=== PATIENT | female | born 1945 | race American Indian/Alaskan Native ===

== ENCOUNTER 2021-11-23 09:55 | Outpatient (CLI) | payer MEDICARE ==
--- NOTE | 2021-11-23 16:33 | Nuclear Medicine Report ---
NUCLEAR MEDICINE PARATHYROID SCAN INDICATION / CLINICAL INFORMATION: N18.30. TECHNIQUE: Following the intravenous administration of 20 mCi [id number], early and delayed ant erior and oblique images of the neck and upper thorax were acquired. COMPARISON: No relevant prior imaging study available. FINDINGS: EARLY IMAGING: Diffuse symmetric physiologic thyroid activity. DELAYED IMAGING: Near complete symmetric washout from the normal thyroid tissue. There is subtle upta ke at the level of the lower pole of the thyroid on the delayed images with washout of the remainder of the uptake in the thyroid this is suspicious for parathyroid adenoma but is not definitive. Additional Findings: None. IMPRESSION: 1. There is a suspicious focus of activity at the level of the lower pole of the right lobe of the th yroid on the delayed images with washout of the remainder of the thyroid gland. This is suspicious fo r parathyroid adenoma. Signer Name: Jonah Smart MD Signed: 11/23/2021 4:29 PM Workstation Name: [id number]
== END 2021-11-23 09:56 | disposition home or self-care (01) ==
LOC: NM 09:55
PROVIDERS: ATTEND Student in an Organized Health Care Education/Training Program
DX: I12.9 Hypertensive chronic kidney disease with stage 1 through stage 4 chronic kidney disease, or unspecified chronic kidney disease (principal); N18.30 Chronic kidney disease, stage 3 unspecified; N25.81 Secondary hyperparathyroidism of renal origin
CPT/HCPCS: 78070; A9500